=== PATIENT | male | born 1990 | race African-American/Black ===

== ENCOUNTER 2018-07-05 04:11 | Emergency (ER) | payer OTHER ==
[2018-07-05] MEDS ORDERED: ceFAZolin 1 GM ADVAN(*) 1 GM in NS 0.9% 50 ML* 50 ML IVPB ONE (04:24)
[2018-07-05] MEDS ORDERED: NS 0.9% 1000 ML* 1,000 ML IV ONE (04:25)
[2018-07-05] MEDS ORDERED: LORazepam INJ* 2 MG/ML 1 ML VIAL IV PUSH ONE (04:25)
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
[2018-07-05] MEDS ORDERED: Cephalexin CAP* 500 MG PO ONE (05:04)
[2018-07-05] MEDS ORDERED: Cephalexin CAP* 500 MG ONE (05:06)
[2018-07-05 05:08] LABS: ABS Basophils 0.1 10^3/ul (0-0.2); ABS Eosinophils 0 10^3/ul (0-0.6); ABS Lymphocytes 1.6 10^3/ul (1.0-4.8); ABS Monocytes 0.2 10^3/ul (0-0.8); ABS Neutrophils 5.4 10^3/ul (1.5-7.7); ABS Nucleated RBC 0 10^3/ul; Eosinophil % 0.1 %; Hematocrit 47 % (42-52); Hemoglobin 15.9 g/dl (14.0-18.0); Lymphocyte % 21.9 %; Mean Corpuscular HGB Conc 34 g/dl (31-36); Mean Corpuscular Hemoglobin 29 pg (27-31); Mean Corpuscular Volume 87 fL (80-94); Mean Platelet Volume 10.5 fL (7.4-10.4); Nucleated Red Blood Cells % 0.1; Platelet Count 218 10^3/ul (150-450); Red Blood Count 5.41 10^6/ul (4.00-5.40); Red Cell Distribution Width 14 % (10.5-15); White Blood Count 7.3 10^3/ul (3.5-10.8)
[2018-07-05 05:24] LABS: EGFR Non-African American 101.5 (>60)
[2018-07-05 09:58] VITALS: BP 130/73
== END 2018-07-05 09:57 | disposition home or self-care (01) ==
LOC: ED 04:11
DX: S01.01XA Laceration without foreign body of scalp, initial encounter (principal); X58.XXXA Exposure to other specified factors, initial encounter; Y92.9 Unspecified place or not applicable; F10.120 Alcohol abuse with intoxication, uncomplicated
CPT/HCPCS: 12001; 36415; 70450; 72125; 80053; 80320; 83605; 85025; 99283; A9270-GY; G0480